=== PATIENT | male | born 1975 | race Caucasian/White ===

== ENCOUNTER 2024-05-20 09:49 | Emergency (ER) | payer OTHER ==
[~2024-05-20] VITALS: Ht 182.9 cm; Wt 133.8 kg
[~2024-05-20 09:49] MED LIST: Aspir 8181 MG PO; CALCA500CH; FAMO40 PO; LIDO2L PO; METO50ER PO; Norco 5-325 Ta1 EACH PO; VITAMIN D5000 UNIT PO
[2024-05-20 10:14] VITALS: BP 162/90
[2024-05-20] MEDS ORDERED: PredniSONE 20 MG Tab PO ONE (10:20)
[2024-05-20] MEDS ORDERED: PRED20 PO (10:20)
== END 2024-05-20 10:40 | disposition home or self-care (01) ==
LOC: ER 09:49
DX: G51.0 Bell's palsy (principal); I10 Essential (primary) hypertension; K21.9 Gastro-esophageal reflux disease without esophagitis; Z87.891 Personal history of nicotine dependence; Z79.82 Long term (current) use of aspirin; Z88.8 Allergy status to other drugs, medicaments and biological substances
CPT/HCPCS: 99283; J7512